=== PATIENT | male | born 1970 ===

== ENCOUNTER 2020-08-03 11:00 | Outpatient (RCR) | payer OTHER, SELFPAY ==
[2020-08-03] MEDS: diazePAM 5 MG TAB PO (11:39)
--- NOTE | 2020-08-03 12:15 | DI.RAD_ITS ---
Exam(s) XR PORTABLE CHEST AP POST LINE EXAM: XR PORTABLE CHEST AP POST LINE CLINICAL HISTORY: PICC PLACEMENT. TECHNIQUE: 2D digital imaging was performed. COMPARISON: No exams were available for comparison FINDINGS: Heart size upper normal. Mediastinum is not widened. Right lung is clear. Mild increased markings noted in the left lung base. No pleural effusions. The distal tip of the left PICC line is in satisfactory position in the SVC. IMPRESSION: PICC line in satisfactory position. Mild increased markings are noted in the left lung base, possibly subtle infiltrate. There no pleura l effusions DATA REPOSITORY: RADIATION DOSE DELIVERED: All CT scans at this facility use at least one of these dose optimization techniques: automated exposure control; mA and/or kV adjustment per patient size (includes targeted e xams where dose is matched to clinical indication); or iterative reconstruction.
[2020-08-03] MEDS: VANCOMYCIN/WATER (PEG) 2 GM/400 ML BAG IVPB (12:28)
== END 2020-08-14 23:59 | disposition home or self-care (01) ==
LOC: INF 11:00
PROVIDERS: PCP Student in an Organized Health Care Education/Training Program; Visit Provider Student in an Organized Health Care Education/Training Program
DX: Z45.2 Encounter for adjustment and management of vascular access device (principal); L08.9 Local infection of the skin and subcutaneous tissue, unspecified
CPT/HCPCS: 36573; 71045; 96365; 96366